=== PATIENT | male | born 1985 | race Caucasian/White ===

== ENCOUNTER 2022-08-26 20:00 | Emergency (ER) | payer BC ==
[~2022-08-26] VITALS: Ht 177.8 cm; Wt 141.0 kg
[2022-08-27 04:33] LABS: CHLORIDE 108 mEq/L (98-107)
[2022-08-27 04:41] LABS: BASOPHILS % 0.2 % (0.0-2.0); EOSINOPHILS % 3.5 % (0.0-5.0); HEMOGLOBIN. 13.9 g/dL (14.0-18.0); LYMPHOCYTES % 32.9 % (20.0-50.0); MEAN CORPUSCULAR HEMOGLOBIN 29.4 pg (28.0-32.0); MEAN CORPUSCULAR VOLUME 86.5 fL (80.0-94.0); MEAN PLATELET VOLUME 8.6 fl (7.4-10.4); MONOCYTES % 4.5 % (2.0-8.0); NEUTROPHILS % 58.9 % (40.0-76.0); PLATELET 266 x1000/uL (130-400); RED BLOOD CELL COUNT 4.74 mill/uL (4.7-6.1); RED CELL DISTRIBUTION WIDTH 14.4 % (11.6-14.6)
[2022-08-27] MEDS ORDERED: IBUP-2029 MT (05:00)
[2022-08-27 05:40] VITALS: BP 147/75
== END 2022-08-27 05:42 | disposition home or self-care (01) ==
LOC: ER 20:00
DX: R07.9 Chest pain, unspecified (principal); E11.9 Type 2 diabetes mellitus without complications; I10 Essential (primary) hypertension; Z88.2 Allergy status to sulfonamides
CPT/HCPCS: 36415; 71045; 80048; 84484; 85025; 93005; 99285; Z7610